=== PATIENT | male | born 1970 | race African-American/Black ===

== ENCOUNTER 2023-12-04 17:42 | Emergency (ER) | payer MEDICARE, OTHER ==
[~2023-12-04] VITALS: Ht 177.8 cm; Wt 81.6 kg
[2023-12-04] MEDS ORDERED: INSU100V42 SUBCUT (18:23)
[2023-12-04] MEDS ORDERED: INSU100I19 SUBCUT (18:23)
[2023-12-04] MEDS ORDERED: INSU100I5 SUBCUT (18:23)
[2023-12-04] MEDS ORDERED: LABE300T2 PO (18:25)
[2023-12-04] MEDS ORDERED: PANT40TA49 PO (18:25)
[2023-12-04] MEDS ORDERED: MINO10TA PO (18:25)
[2023-12-04] MEDS ORDERED: ASPI81TA31 PO (18:27)
[2023-12-04] MEDS ORDERED: SEVE800T8 PO (18:27)
[2023-12-04] MEDS ORDERED: SILD20TA2 PO (18:27)
[2023-12-04] MEDS ORDERED: ATOR40TA29 PO (18:30)
[2023-12-04] MEDS ORDERED: ALBU18HF2 PO (18:30)
[2023-12-04] MEDS ORDERED: AMLO-212 PO (18:30)
[2023-12-04] MEDS ORDERED: CLOP75TA33 PO (18:31)
[2023-12-04] MEDS ORDERED: DOCU100C36 PO (18:31)
[2023-12-04 18:37] LABS: BASOPHILS # (AUTO) 0.1 K/UL (0.0-0.2); BASOPHILS % (AUTO) 2.1 % (0.0-2.0); EOSINOPHILS # (AUTO) 0.2 K/uL (0.0-0.7); EOSINOPHILS % (AUTO) 4.2 % (0.0-7.0); HEMATOCRIT 26.7 % (36.7-47.1); HEMOGLOBIN 9.1 g/dL (12.5-16.3); LYMPHOCYTES # (AUTO) 0.9 K/uL (0.8-4.8); LYMPHOCYTES % (AUTO) 20.9 % (20.5-51.5); MEAN CORPUSCULAR HEMOGLOBIN 31.5 uug (23.8-33.4); MEAN CORPUSCULAR HGB CONC 34 g/dL (32.5-36.3); MONOCYTES # (AUTO) 0.5 K/uL (0.1-1.30); MONOCYTES % (AUTO) 11.9 % (0.0-11.0); NEUTROPHILS # (AUTO) 2.7 K/uL (1.8-8.9); NEUTROPHILS % (AUTO) 60.9 % (38.5-71.5); PLATELET COUNT (AUTO) 131 K/uL (152-348); RED BLOOD CELL COUNT(AUTO) 2.87 MIL/uL (4.06-5.63); RED CELL DISTRIBUTION WIDTH 15.5 % (12.1-16.2); WHITE BLOOD COUNT (AUTO) 4.4 K/uL (3.6-10.2)
[2023-12-04 18:43] LABS: DIFFERENTIAL COMMENT 1
[2023-12-04] MEDS: IV NORMAL SALINE 500 ML BAG IV ONE (18:45)
[2023-12-04 19:04] LABS: ALANINE AMINOTRANSFERASE 18 U/L (16-63); ALBUMIN 3.6 g/dL (3.4-5.0); ALKALINE PHOSPHATASE 103 U/L (50-136); ASPARTATE AMINOTRANSFERASE 10 U/L (15-37); BILIRUBIN,DIRECT 0.2 mg/dL (0.0-0.2); BILIRUBIN,TOTAL 0.5 mg/dL (0.2-1.0); CALCIUM 6.8 mg/dL (8.5-10.1); CARBON DIOXIDE 20 mmol/L (21-32); CHLORIDE 104 mmol/L (98-107); CREATININE 6.6 mg/dL (0.6-1.3); GLUCOSE 243 mg/dL (74-106); LIPASE < 10 U/L (16-77); POTASSIUM 5.1 mmol/L (3.5-5.1); SODIUM SERUM 139 mmol/L (136-145); TOTAL PROTEIN, SERUM 7.4 g/dL (6.4-8.2); UREA NITROGEN, BLOOD 50 mg/dL (7-18)
[2023-12-04] MEDS ORDERED: PANTOPRAZOLE SODIUM 40 MG VIAL ONE (19:41)
[2023-12-04] MEDS ORDERED: ONDANSETRON 4 MG/2 ML VIAL ONE (19:41)
[2023-12-04] MEDS: PANTOPRAZOLE SODIUM IV 40 MG in IV DEXTROSE 5% 100 ML IV ONE (19:55)
[2023-12-04] MEDS: ONDANSETRON 4 MG/2 ML VIAL IV ONE (19:55)
[2023-12-04] MEDS: PANTOPRAZOLE SODIUM 40 MG VIAL IV ONE (19:56)
[2023-12-04 21:06] VITALS: BP 151/77; O2SAT 99
== END 2023-12-04 20:00 | disposition left against medical advice (07) ==
LOC: ER 17:47
DX: R10.13 Epigastric pain (principal); R11.2 Nausea with vomiting, unspecified; I25.2 Old myocardial infarction; R07.89 Other chest pain; I50.9 Heart failure, unspecified; E11.9 Type 2 diabetes mellitus without complications; N18.6 End stage renal disease; Z86.2 Personal history of diseases of the blood and blood-forming organs and certain disorders involving the immune mechanism; Z86.73 Personal history of transient ischemic attack (TIA), and cerebral infarction without residual deficits; Z88.5 Allergy status to narcotic agent; Z88.8 Allergy status to other drugs, medicaments and biological substances; Z79.01 Long term (current) use of anticoagulants; Z79.899 Other long term (current) drug therapy; Z79.4 Long term (current) use of insulin
CPT/HCPCS: 99285; 74176; 71045; 80076; 80048; 83880; 83690; 85025; 87040; 84484; 36415; 93005; 83605; J2405; C9113 ×2; J7040; A4606; A4663